=== PATIENT | male | born 1945 | race Caucasian/White ===

== ENCOUNTER 2017-01-14 01:21 | Inpatient (IN) | payer OTHER, MEDICAID ==
[~2017-01-14] VITALS: Ht 167.6 cm; Wt 97.5 kg
[2017-01-14 02:38] LABS: BASOPHIL % 0.2 % (0-2); PLATELET COUNT 196 x10^3mcL (130-400); RED CELL DISTRIBUTION WIDTH 13.2 % (11.5-14.5)
[2017-01-14 02:44] LABS: CALCIUM 8.5 mg/dL (8.5-10.1); CARBON DIOXIDE 25.9 mmol/L (21-32); CHLORIDE SERUM 106 mmol/L (98-107); CREATININE SERUM 0.9 mg/dL (0.7-1.3); GLUCOSE SERUM 97 mg/dL (74-106); SODIUM SERUM 140 mmol/L (136-145)
[2017-01-14 02:48] LABS: ALBUMIN 3.8 g/dL (3.4-5.0); ALKALINE PHOSPHATASE 122 U/L (46-116); ALT/SGPT 22 U/L (16-63); AMYLASE 78 U/L (25-115); AST/SGOT 21 U/L (15-37); BILIRUBIN TOTAL 0.91 mg/dL (0.20-1.00); LIPASE 181 IU/L (73-393); TOTAL PROTEIN, SERUM 7.2 g/dL (6.4-8.2)
[2017-01-14 03:50] LABS: microscopic required? YES; urine erythrocyte 1+ (NEGATIVE)
[2017-01-14] MEDS ORDERED: ARICEPT5 MG PO (04:45)
[2017-01-14] MEDS ORDERED: TAMSULOSIN HYD0.4 M1 PO (04:46)
[2017-01-14] MEDS ORDERED: ASPIRIN325 MG PO (04:50)
[2017-01-14] MEDS ORDERED: BENAZEPRIL HYDR20 M1 PO (04:51)
[2017-01-14] MEDS ORDERED: SIMVASTATIN10 M1 PO (04:53)
[2017-01-14 05:51] LABS: FREE T4 1.01 ng/dL (0.76-1.46); FREE THYROXINE INDEX 2.8 ug/dL (1.4-4.5); T4(THYROXINE) 7.3 ug/dL (4.7-13.3)
[2017-01-14 05:53] LABS: CHOLESTEROL/HDL RATIO 3.1; T3 TOTAL 1.19 ng/mL
[2017-01-14 09:36] VITALS: BP 131/61
[2017-01-14 14:45] VITALS: BP 123/53
[2017-01-14 17:43] VITALS: BP 128/56
[2017-01-14 20:47] VITALS: BP 138/62
[2017-01-15 05:17] VITALS: BP 122/48
[2017-01-15 09:44] VITALS: BP 120/56
[2017-01-15 11:11] LABS: BASOPHIL % 0.4 % (0-2); PLATELET COUNT 174 x10^3mcL (130-400); RED CELL DISTRIBUTION WIDTH 13.8 % (11.5-14.5)
[2017-01-15 11:27] LABS: CALCIUM 8.1 mg/dL (8.5-10.1); CARBON DIOXIDE 23.5 mmol/L (21-32); CHLORIDE SERUM 108 mmol/L (98-107); CREATININE SERUM 0.8 mg/dL (0.7-1.3); GLUCOSE SERUM 71 mg/dL (74-106); MAGNESIUM 1.8 mg/dL (1.8-2.4); PHOSPHOROUS 2.6 mg/dL (2.5-4.9); POTASSIUM SERUM 4.1 mmol/L (3.5-5.1); SODIUM SERUM 141 mmol/L (136-145)
[2017-01-15 17:25] VITALS: BP 138/66
[2017-01-15 21:13] VITALS: BP 158/68
[2017-01-16 06:26] VITALS: BP 110/48
[2017-01-16 07:02] LABS: BASOPHIL % 0.4 % (0-2); PLATELET COUNT 177 x10^3mcL (130-400); RED CELL DISTRIBUTION WIDTH 13.4 % (11.5-14.5)
[2017-01-16 07:12] LABS: CALCIUM 8.2 mg/dL (8.5-10.1); CARBON DIOXIDE 23.9 mmol/L (21-32); CHLORIDE SERUM 108 mmol/L (98-107); CREATININE SERUM 0.8 mg/dL (0.7-1.3); GLUCOSE SERUM 74 mg/dL (74-106); MAGNESIUM 1.8 mg/dL (1.8-2.4); PHOSPHOROUS 2.4 mg/dL (2.5-4.9); POTASSIUM SERUM 3.8 mmol/L (3.5-5.1); SODIUM SERUM 141 mmol/L (136-145)
[2017-01-16 09:25] VITALS: BP 111/49
[2017-01-16] MEDS ORDERED: COLACE100 MG PO (13:00)
[2017-01-16] MEDS ORDERED: NORCO1 TA2 PO (13:01)
[2017-01-16 13:02] VITALS: BP 111/49
[2017-01-16] MEDS ORDERED: LEVOFLOXACIN500 M1 PO (13:02)
[2017-01-16] MEDS ORDERED: FLA500 PO (13:03)
[2017-01-16] MEDS ORDERED: LAC PO (13:04)
== END 2017-01-16 14:57 | disposition home or self-care (01) | DRG 392 ==
LOC: ED 01:21 → MU 05:03 → DU 05:03 → MU 23:13
PROVIDERS: Emergency Medicine; ADMIT Family Medicine
DX: K57.32 Diverticulitis of large intestine without perforation or abscess without bleeding (principal); J02.9 Acute pharyngitis, unspecified; I27.2 Other secondary pulmonary hypertension; I34.0 Nonrheumatic mitral (valve) insufficiency; I07.1 Rheumatic tricuspid insufficiency; N40.0 Benign prostatic hyperplasia without lower urinary tract symptoms; M19.012 Primary osteoarthritis, left shoulder; M19.011 Primary osteoarthritis, right shoulder; M47.895 Other spondylosis, thoracolumbar region; Z68.34 Body mass index [BMI] 34.0-34.9, adult; Z79.82 Long term (current) use of aspirin
CPT/HCPCS: 83880; 84439; J0295; J0696; J3490; J7030; Q0092

== ENCOUNTER 2017-07-02 13:55 | Emergency (ER) | payer OTHER, MEDICAID ==
[~2017-07-02] VITALS: Ht 165.1 cm; Wt 88.9 kg
[~2017-07-02 13:55] MED LIST: ARICEPT5 MG PO; ASPIRIN325 MG PO; BENAZEPRIL HYDR20 M1 PO; COLACE100 MG PO; FLA500 PO; LAC PO; LEVOFLOXACIN500 M1 PO; NORCO1 TA2 PO; SIMVASTATIN10 M1 PO; TAMSULOSIN HYD0.4 M1 PO
[2017-07-02 14:17] VITALS: BP 126/75
== END 2017-07-02 16:12 | disposition home or self-care (01) ==
LOC: ED 13:55
DX: N39.0 Urinary tract infection, site not specified (principal); Z88.5 Allergy status to narcotic agent; I10 Essential (primary) hypertension; E78.00 Pure hypercholesterolemia, unspecified; Z86.73 Personal history of transient ischemic attack (TIA), and cerebral infarction without residual deficits

== ENCOUNTER 2017-07-23 12:12 | Emergency (ER) | payer OTHER, MEDICAID ==
[~2017-07-23] VITALS: Ht 172.7 cm; Wt 88.9 kg
[2017-07-23 15:40] VITALS: BP 120/90
== END 2017-07-23 15:40 | disposition home or self-care (01) ==
LOC: ED 12:12
DX: J06.9 Acute upper respiratory infection, unspecified (principal); M25.572 Pain in left ankle and joints of left foot; I10 Essential (primary) hypertension; E78.00 Pure hypercholesterolemia, unspecified
CPT/HCPCS: Q0092

== ENCOUNTER 2017-08-01 10:47 | Emergency (ER) | payer OTHER, MEDICAID ==
[~2017-08-01] VITALS: Ht 170.2 cm; Wt 85.4 kg
[2017-08-01 11:30] LABS: BASOPHIL % 0.3 % (0-2); PLATELET COUNT 225 x10^3mcL (130-400); RED CELL DISTRIBUTION WIDTH 13.8 % (11.5-14.5)
[2017-08-01 11:39] LABS: CALCIUM 9.2 mg/dL (8.5-10.1); CARBON DIOXIDE 21.9 mmol/L (21-32); CHLORIDE SERUM 101 mmol/L (98-107); CREATININE SERUM 1.6 mg/dL (0.7-1.3); GLUCOSE SERUM 122 mg/dL (74-106); POTASSIUM SERUM 3.2 mmol/L (3.5-5.1); SODIUM SERUM 137 mmol/L (136-145)
[2017-08-01 11:43] LABS: ALBUMIN 3.7 g/dL (3.4-5.0); ALKALINE PHOSPHATASE 95 U/L (46-116); ALT/SGPT 18 U/L (16-63); AST/SGOT 20 U/L (15-37); LIPASE 250 IU/L (73-393)
[2017-08-01 11:45] LABS: TOTAL PROTEIN, SERUM 9.1 g/dL (6.4-8.2)
[2017-08-01 13:29] VITALS: BP 118/66
== END 2017-08-01 13:29 | disposition home or self-care (01) ==
LOC: ED 10:47
PROVIDERS: Emergency Medicine
DX: N39.0 Urinary tract infection, site not specified (principal); E86.0 Dehydration; E87.6 Hypokalemia; I10 Essential (primary) hypertension; E78.00 Pure hypercholesterolemia, unspecified; Z88.5 Allergy status to narcotic agent
CPT/HCPCS: J3010; J7030

== ENCOUNTER 2018-02-01 20:29 | Emergency (ER) | payer OTHER, MEDICAID ==
[~2018-02-01] VITALS: Ht 175.3 cm; Wt 90.7 kg
[2018-02-01 20:35] VITALS: Ht 175.3 cm; Wt 90.7 kg
[2018-02-01 21:45] LABS: BASOPHIL % 0.4 % (0-2); PLATELET COUNT 194 x10^3mcL (130-400); RED CELL DISTRIBUTION WIDTH 13.5 % (11.5-14.5)
[2018-02-01 21:48] LABS: microscopic required? YES; urine erythrocyte 1+ (NEGATIVE)
[2018-02-01 21:55] LABS: CALCIUM 8.7 mg/dL (8.5-10.1); CARBON DIOXIDE 26.4 mmol/L (21-32); CHLORIDE SERUM 109 mmol/L (98-107); CREATININE SERUM 0.9 mg/dL (0.7-1.3); GLUCOSE SERUM 96 mg/dL (74-106); POTASSIUM SERUM 4.1 mmol/L (3.5-5.1); SODIUM SERUM 144 mmol/L (136-145)
[2018-02-01 21:59] LABS: ALBUMIN 3.9 g/dL (3.4-5.0); ALKALINE PHOSPHATASE 142 U/L (46-116); ALT/SGPT 16 U/L (16-63); AMYLASE 98 U/L (25-115); AST/SGOT 16 U/L (15-37); BILIRUBIN TOTAL 0.91 mg/dL (0.20-1.00); LIPASE 195 IU/L (73-393); TOTAL PROTEIN, SERUM 7.4 g/dL (6.4-8.2)
[2018-02-02 00:36] VITALS: BP 110/78
== END 2018-02-02 00:36 | disposition home or self-care (01) ==
LOC: ED 20:29
PROVIDERS: Emergency Medicine
DX: K57.90 Diverticulosis of intestine, part unspecified, without perforation or abscess without bleeding (principal); I10 Essential (primary) hypertension; E78.00 Pure hypercholesterolemia, unspecified; Z88.5 Allergy status to narcotic agent
CPT/HCPCS: 83880

== ENCOUNTER 2018-05-15 15:53 | Emergency (ER) | payer OTHER, MEDICAID ==
[~2018-05-15] VITALS: Ht 175.3 cm; Wt 94.9 kg
[2018-05-15 16:01] VITALS: Ht 175.3 cm; Wt 94.9 kg
[2018-05-15 16:57] LABS: BASOPHIL % 0.6 % (0-2); PLATELET COUNT 170 x10^3mcL (130-400); RED CELL DISTRIBUTION WIDTH 13.5 % (11.5-14.5)
[2018-05-15 17:03] LABS: CALCIUM 8.7 mg/dL (8.5-10.1); CARBON DIOXIDE 27.1 mmol/L (21-32); CHLORIDE SERUM 107 mmol/L (98-107); CREATININE SERUM 1.1 mg/dL (0.7-1.3); GLUCOSE SERUM 85 mg/dL (74-106); POTASSIUM SERUM 4.6 mmol/L (3.5-5.1); SODIUM SERUM 142 mmol/L (136-145)
[2018-05-15 17:08] LABS: ALBUMIN 3.8 g/dL (3.4-5.0); ALKALINE PHOSPHATASE 122 U/L (46-116); ALT/SGPT 23 U/L (16-63); AST/SGOT 17 U/L (15-37); TOTAL PROTEIN, SERUM 7.7 g/dL (6.4-8.2)
[2018-05-15 17:53] LABS: microscopic required? YES; urine erythrocyte TRACE (NEGATIVE)
[2018-05-15 18:49] VITALS: BP 122/70
== END 2018-05-15 18:49 | disposition home or self-care (01) ==
LOC: ED 15:53
PROVIDERS: Emergency Medicine
DX: B34.9 Viral infection, unspecified (principal); I10 Essential (primary) hypertension; E78.00 Pure hypercholesterolemia, unspecified; Z88.5 Allergy status to narcotic agent; Z86.73 Personal history of transient ischemic attack (TIA), and cerebral infarction without residual deficits; Z98.890 Other specified postprocedural states
CPT/HCPCS: J1885; J7030; J7613; J7644

== ENCOUNTER 2018-07-10 18:09 | Emergency (ER) | payer OTHER, MEDICAID ==
[~2018-07-10] VITALS: Ht 175.3 cm; Wt 93.9 kg
[2018-07-10 18:23] VITALS: Ht 175.3 cm; Wt 93.9 kg
[2018-07-10 22:07] VITALS: BP 133/72
== END 2018-07-10 22:07 | disposition home or self-care (01) ==
LOC: ED 18:09
DX: M25.572 Pain in left ankle and joints of left foot (principal); R60.0 Localized edema; I10 Essential (primary) hypertension; E78.00 Pure hypercholesterolemia, unspecified; Z86.73 Personal history of transient ischemic attack (TIA), and cerebral infarction without residual deficits; Z98.890 Other specified postprocedural states; Z88.5 Allergy status to narcotic agent
CPT/HCPCS: Q0092

== ENCOUNTER 2018-10-03 10:11 | Emergency (ER) | payer OTHER, MEDICAID ==
[~2018-10-03] VITALS: Ht 175.3 cm; Wt 96.6 kg
[2018-10-03 10:16] VITALS: Ht 175.3 cm; Wt 96.6 kg
[2018-10-03 11:29] VITALS: BP 130/79
== END 2018-10-03 11:29 | disposition home or self-care (01) ==
LOC: ED 10:11
DX: J06.9 Acute upper respiratory infection, unspecified (principal); I10 Essential (primary) hypertension; E78.00 Pure hypercholesterolemia, unspecified; Z86.73 Personal history of transient ischemic attack (TIA), and cerebral infarction without residual deficits; Z98.890 Other specified postprocedural states; Z88.5 Allergy status to narcotic agent
CPT/HCPCS: 87804

== ENCOUNTER 2018-10-25 11:36 | Emergency (ER) | payer OTHER, MEDICAID ==
[~2018-10-25] VITALS: Ht 167.6 cm; Wt 96.2 kg
[2018-10-25 11:54] VITALS: Ht 167.6 cm; Wt 96.2 kg
[2018-10-25 16:40] VITALS: BP 140/70
== END 2018-10-25 16:40 | disposition home or self-care (01) ==
LOC: ED 11:36
DX: R91.8 Other nonspecific abnormal finding of lung field (principal); J98.01 Acute bronchospasm; I10 Essential (primary) hypertension; E78.00 Pure hypercholesterolemia, unspecified; Z85.46 Personal history of malignant neoplasm of prostate; Z98.890 Other specified postprocedural states; Z86.73 Personal history of transient ischemic attack (TIA), and cerebral infarction without residual deficits
CPT/HCPCS: J2930; J7613; J7644

== ENCOUNTER 2019-10-28 11:01 | Emergency (ER) | payer OTHER, MEDICAID ==
[~2019-10-28] VITALS: Ht 177.8 cm; Wt 98.0 kg
[2019-10-28 11:20] VITALS: Ht 177.8 cm; Wt 98.0 kg
[2019-10-28 14:24] VITALS: BP 140/71
== END 2019-10-28 14:24 | disposition home or self-care (01) ==
LOC: ED 11:01
DX: J20.9 Acute bronchitis, unspecified (principal); J02.9 Acute pharyngitis, unspecified; I10 Essential (primary) hypertension; E78.00 Pure hypercholesterolemia, unspecified; Z86.73 Personal history of transient ischemic attack (TIA), and cerebral infarction without residual deficits; Z88.5 Allergy status to narcotic agent
CPT/HCPCS: Q0092

== ENCOUNTER 2019-11-01 17:30 | Emergency (ER) | payer OTHER, MEDICAID ==
[~2019-11-01] VITALS: Ht 167.6 cm; Wt 98.9 kg
[2019-11-01 17:43] VITALS: Ht 167.6 cm; Wt 98.9 kg
[2019-11-01 18:33] LABS: CALCIUM 8.5 mg/dL (8.5-10.1); CARBON DIOXIDE 28.3 mmol/L (21-32); CHLORIDE SERUM 108 mmol/L (98-107); CREATININE SERUM 1.1 mg/dL (0.7-1.3); GLUCOSE SERUM 84 mg/dL (74-106); POTASSIUM SERUM 4.3 mmol/L (3.5-5.1); SODIUM SERUM 142 mmol/L (136-145)
[2019-11-01 18:37] LABS: ALBUMIN 3.6 g/dL (3.4-5.0); ALKALINE PHOSPHATASE 116 U/L (46-116); ALT/SGPT 29 U/L (16-63); AST/SGOT 20 U/L (15-37); BILIRUBIN TOTAL 0.78 mg/dL (0.20-1.00); MAGNESIUM 2.1 mg/dL (1.8-2.4)
[2019-11-01 18:40] LABS: BASOPHIL % 0.5 % (0-2); PLATELET COUNT 223 x10^3mcL (130-400); RED CELL DISTRIBUTION WIDTH 13.6 % (11.5-14.5)
[2019-11-01 20:08] LABS: UA SPECIFIC GRAVITY >=1.030 (1.005-1.035); microscopic required? YES; urine erythrocyte TRACE (NEGATIVE)
[2019-11-01 21:48] VITALS: BP 126/57
== END 2019-11-01 21:48 | disposition home or self-care (01) ==
LOC: ED 17:30
PROVIDERS: Emergency Medicine
DX: J10.1 Influenza due to other identified influenza virus with other respiratory manifestations (principal); E86.0 Dehydration; I10 Essential (primary) hypertension; E78.00 Pure hypercholesterolemia, unspecified
CPT/HCPCS: 36415; 87804; J1885

== ENCOUNTER 2020-07-29 12:22 | Emergency (ER) | payer OTHER, MEDICAID, SELFPAY ==
[~2020-07-29] VITALS: Ht 172.7 cm; Wt 95.3 kg
[~2020-07-29 12:22] MED LIST changes: +CIPRO500 MG PO
[2020-07-29 12:34] VITALS: Ht 172.7 cm; Wt 95.3 kg
[2020-07-29 14:52] VITALS: BP 139/72
== END 2020-07-29 14:52 | disposition home or self-care (01) ==
LOC: ED 12:22
DX: U07.1 COVID-19 (principal); J98.11 Atelectasis; I10 Essential (primary) hypertension; E78.00 Pure hypercholesterolemia, unspecified; Z98.890 Other specified postprocedural states; Z88.5 Allergy status to narcotic agent; Z86.73 Personal history of transient ischemic attack (TIA), and cerebral infarction without residual deficits
CPT/HCPCS: J7030; U0003

== ENCOUNTER 2020-08-10 18:09 | Emergency (ER) | payer BC, MEDICAID ==
[~2020-08-10] VITALS: Ht 170.2 cm; Wt 95.3 kg
[2020-08-10 18:14] VITALS: Ht 170.2 cm; Wt 95.3 kg
[2020-08-10 20:35] VITALS: BP 140/82
== END 2020-08-10 20:35 | disposition home or self-care (01) ==
LOC: ED 18:09
DX: T78.3XXA Angioneurotic edema, initial encounter (principal); R31.9 Hematuria, unspecified; E78.00 Pure hypercholesterolemia, unspecified; I10 Essential (primary) hypertension; Z82.3 Family history of stroke; Z98.890 Other specified postprocedural states; Z88.5 Allergy status to narcotic agent
CPT/HCPCS: J7512